=== PATIENT | male | born 2000 | race Caucasian/White ===

== ENCOUNTER 2019-03-26 18:40 | Emergency (ER) | payer OTHER ==
[~2019-03-26] VITALS: Ht 182.9 cm; Wt 95.5 kg
[2019-03-26] MEDS ORDERED: ONDANSETRON 4MG/2ML VIAL (J2405) IV ONE (19:45)
[2019-03-26] MEDS ORDERED: GI COCKTAIL 50ML BTL(HYOSCYAMINE/MAALOX/LIDOCAINE VISCOUS)(1:3:1) PO ONE (19:45)
[2019-03-26] MEDS ORDERED: PANTOPRAZOLE 40MG INJ (PROTONIX) (C9113) IV ONE (19:45)
[2019-03-26] MEDS ORDERED: NS 1,000 ML IV ONE (19:45)
[2019-03-26] MEDS ORDERED: SUCRALFATE 1 GM TAB PO ONE (19:45)
[2019-03-26 20:03] LABS: BASO % 0.3 % (0.0-1.0); EOS # 0.1 10^3/uL (0.0-0.50); EOS % 0.8 % (0.0-3.0); HEMATOCRIT 40.1 % (42.0-52.0); HEMOGLOBIN 13.9 g/dl (13.5-17.5); LYMPH # 1.7 10^3/uL (1.5-6.5); MEAN CORPUSCULAR HEMOGLOBIN 30.3 pg (27.0-33.0); MEAN CORPUSCULAR HGB CONC 34.7 g/dl (32.0-36.5); MEAN CORPUSCULAR VOLUME 87.4 fl (80.0-96.0); MONO # 0.6 10^3/uL (0.0-0.8); MONO % 10.2 % (0.0-5.0); NEUTROPHILS # 3.8 10^3/uL (1.8-7.7); NEUTROPHILS % 61.4 % (36.0-66.0); PLATELET COUNT, AUTOMATED 292 10^3/uL (150-450); RED BLOOD COUNT 4.59 10^6/uL (4.30-6.10); WHITE BLOOD COUNT 6.2 10^3/uL (4.0-10.0)
[2019-03-26 20:29] LABS: ALBUMIN 4.3 GM/DL (3.2-5.2); BILIRUBIN,DIRECT 0.2 MG/DL (0.0-0.2); BILIRUBIN,TOTAL 0.8 MG/DL (0.2-1.0)
[2019-03-26] MEDS ORDERED: ZOFR4TAB16 PO (21:27)
[2019-03-26] MEDS ORDERED: OMEP40CA97 PO (21:27)
[2019-03-26] MEDS ORDERED: CARA1TAB6 PO (21:27)
[2019-03-26 21:36] VITALS: BP 114/64
--- NOTE | 2019-03-27 11:56 | REP ---
Clinical: Acute abdominal pain. Technique: Upright view of the chest with supine and upright views of the abdomen and pelvis. Findings: Frontal upright view of the chest demonstrates no acute cardiopulmonary process or free air below the diaphragm to suspect pneumoperitoneum. Supine and upright views of the abdomen and pelvis demonstrate nonspecific bowel gas pattern without obstruction or perforation. No organomegaly. No abnormal calcifications. Skeletal structures normal for age. Impression: Nonspecific bowel gas pattern. Electronically Signed by Ralph James MD 03/27/2019 02:10 A
== END 2019-03-26 21:38 | disposition home or self-care (01) ==
LOC: M ED 18:40
DX: R10.12 Left upper quadrant pain (principal); R11.10 Vomiting, unspecified
CPT/HCPCS: 74021; 80047; 80076; 83690; 85025; 96374; 96375; 99284; C9113; J2405

== ENCOUNTER 2019-07-18 12:58 | Emergency (ER) | payer OTHER ==
[~2019-07-18] VITALS: Ht 182.9 cm; Wt 103.1 kg
[~2019-07-18 12:58] MED LIST: CARA1TAB6 PO; OMEP40CA97 PO; ZOFR4TAB16 PO
--- NOTE | 2019-07-18 15:02 | REP ---
PELVIS AND BILATERAL HIPS: AP view of the pelvis and AP and frogleg views of the bilateral hips performed. There is no evidence of acute fracture, dislocation or intrinsic bone disease. Hip joints appear normal. IMPRESSION: No fracture or dislocation. Electronically Signed by Kevin Herring MD 07/18/2019 05:14 P
--- NOTE | 2019-07-18 15:05 | REP ---
LUMBOSACRAL SPINE: Five views of the lumbosacral spine are performed. There is no compression fracture or malalignment. There is normal lumbar lordosis. The disc spaces are well preserved. Posterior elements are intact. IMPRESSION: No fracture or dislocation. Electronically Signed by Kevin Herring MD 07/18/2019 05:14 P
[2019-07-18 15:17] LABS: APPEARANCE, URINE CLEAR (CLEAR); BACTERIA, URINE AUTO NEGATIVE (NEGATIVE); BASO % 0.5 % (0.0-1.0); BILIRUBIN, URINE AUTO NEGATIVE (NEGATIVE); BLOOD, URINE BLOOD NEGATIVE (NEGATIVE); COLOR, URINE YELLOW (YELLOW); EOS % 0.3 % (0.0-3.0); GLUCOSE, URINE (UA) AUTO NEGATIVE (NEGATIVE); HEMATOCRIT 42.5 % (42.0-52.0); HEMOGLOBIN 14.5 g/dl (13.5-17.5); KETONE, URINE AUTO NEGATIVE (NEGATIVE); LEUKOCYTE ESTERASE, URINE AUTO NEGATIVE (NEGATIVE); LYMPH # 1.6 10^3/uL (1.5-5.0); LYMPH % 25.5 % (24.0-44.0); MEAN CORPUSCULAR HEMOGLOBIN 29.5 pg (27.0-33.0); MEAN CORPUSCULAR HGB CONC 34.1 g/dl (32.0-36.5); MEAN CORPUSCULAR VOLUME 86.6 fl (80.0-96.0); MONO # 0.5 10^3/uL (0.0-0.8); MONO % 7.6 % (0.0-5.0); MUCUS, URINE SMALL (NEGATIVE); NEUTROPHILS # 4.2 10^3/uL (1.5-8.5); NEUTROPHILS % 65.8 % (36.0-66.0); NITRITE, URINE AUTO NEGATIVE (NEGATIVE); PLATELET COUNT, AUTOMATED 357 10^3/uL (150-450); PROTEIN, URINE AUTO NEGATIVE (NEGATIVE); RBC, URINE AUTO 1 /HPF (0-3); RED BLOOD COUNT 4.91 10^6/uL (4.30-6.10); SPECIFIC GRAVITY URINE AUTO 1.014 (1.002-1.035); SQUAMOUS EPITHELIAL CELL UR AU 0 /HPF (0-6); UROBILINOGEN, URINE AUTO 0.2 mg/dL (0.0-2.0); WBC, URINE AUTO 1 /HPF (0-3); WHITE BLOOD COUNT 6.4 10^3/uL (4.0-10.0)
[2019-07-18 15:40] LABS: ALBUMIN 4.3 GM/DL (3.2-5.2); BILIRUBIN,DIRECT 0.1 MG/DL (0.0-0.2); BILIRUBIN,TOTAL 0.6 MG/DL (0.2-1.0); TOTAL PROTEIN 7.9 GM/DL (6.4-8.2)
[2019-07-18 15:58] VITALS: BP 140/76
== END 2019-07-18 15:59 | disposition home or self-care (01) ==
LOC: M ED 12:58
DX: S70.01XA Contusion of right hip, initial encounter (principal); M54.5 Low back pain; V43.52XA Car driver injured in collision with other type car in traffic accident, initial encounter; Y92.9 Unspecified place or not applicable; Y93.9 Activity, unspecified; Y99.9 Unspecified external cause status; F17.290 Nicotine dependence, other tobacco product, uncomplicated

== ENCOUNTER 2019-10-20 16:39 | Emergency (ER) | payer OTHER ==
[~2019-10-20] VITALS: Ht 180.3 cm; Wt 102.2 kg
[2019-10-20] MEDS ORDERED: GI COCKTAIL 50ML BTL(HYOSCYAMINE/MAALOX/LIDOCAINE VISCOUS)(1:3:1) PO ONE (17:15)
[2019-10-20] MEDS ORDERED: PANTOPRAZOLE 40MG TAB (PROTONIX) PO ONE (17:15)
[2019-10-20 17:33] LABS: BASO % 0.2 % (0.0-1.0); EOS # 0.1 10^3/uL (0.0-0.5); EOS % 1.7 % (0.0-3.0); HEMATOCRIT 44.8 % (42.0-52.0); HEMOGLOBIN 15.1 g/dl (13.5-17.5); LYMPH # 1.2 10^3/uL (1.5-5.0); LYMPH % 25.9 % (24.0-44.0); MEAN CORPUSCULAR HGB CONC 33.7 g/dl (32.0-36.5); MEAN CORPUSCULAR VOLUME 86.2 fl (80.0-96.0); MONO # 0.5 10^3/uL (0.0-0.8); MONO % 9.8 % (0.0-5.0); NEUTROPHILS % 62.2 % (36.0-66.0); PLATELET COUNT, AUTOMATED 337 10^3/uL (150-450); WHITE BLOOD COUNT 4.8 10^3/uL (4.0-10.0)
[2019-10-20 17:53] LABS: ALBUMIN 4.2 GM/DL (3.2-5.2); BILIRUBIN,DIRECT 0.2 MG/DL (0.0-0.2); BILIRUBIN,TOTAL 0.5 MG/DL (0.2-1.0); TOTAL PROTEIN 7.7 GM/DL (6.4-8.2)
--- NOTE | 2019-10-20 17:54 | ECGEPIP ---
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
--- NOTE | 2019-10-20 17:56 | REP ---
Clinical: Acute chest pain . Comparison: None . Technique: PA and lateral. Findings: The mediastinum and cardiac silhouette are normal. The lung kapadia are clear and without acute consolidation, effusion, or pneumothorax. The skeletal structures are intact and normal. Impression: 1. No acute cardiopulmonary process. Electronically Signed by aRlph James MD 10/20/2019 05:47 P
[2019-10-20] MEDS ORDERED: OMEP-218 PO (18:02)
[2019-10-20] MEDS ORDERED: CARA1TAB6 PO (18:02)
[2019-10-20 18:14] VITALS: BP 129/72
== END 2019-10-20 18:16 | disposition home or self-care (01) ==
LOC: M ED 16:39
DX: K21.9 Gastro-esophageal reflux disease without esophagitis (principal); R07.9 Chest pain, unspecified; R00.1 Bradycardia, unspecified; F17.200 Nicotine dependence, unspecified, uncomplicated

== ENCOUNTER → 2019-12-09 | Outpatient (CLI) | payer OTHER ==
[~2019-12-09] MED LIST changes: +OMEP-218 PO; +OMEP1CAP73 PO
== END ==
LOC: M LABSMTC 10:15
PROVIDERS: ATTEND Anesthesiology
DX: Z01.818 Encounter for other preprocedural examination (principal); Z11.59 Encounter for screening for other viral diseases
CPT/HCPCS: C9803; U0002

== ENCOUNTER 2019-12-11 11:39 | Day surgery (SDC) | payer OTHER ==
[~2019-12-11] VITALS: Ht 185.4 cm; Wt 102.1 kg
[2019-12-11] MEDS: NS 1,000 ML IV ONE (12:00)
[2019-12-11] MEDS ORDERED: propofoL 200 MG/20 ML VIAL As Ordered ONE (12:37)
[2019-12-11] MEDS ORDERED: LIDOCAINE 2% 100MG/5ML SDV (FOR ANES.) As Ordered ONE (12:37)
--- NOTE | 2019-12-11 12:57 | ROOR ---
Patient Name: Sahil Doshi Procedure Date: 12/11/2019 12:40 PM Date of : 2000 Age: 19 Room: [facility] Gender: Male Note Status: Finalized Procedure: Upper Endoscopy + Biopsies Indications: Epigastric abdominal pain, Heartburn Providers: Laureano Underwood MD Referring MD: GIACOMO KUMARI MD Requesting Provider: Medicines: Monitored Anesthesia Care Complications: No immediate complications. Procedure: Pre-Anesthesia Assessment: - The heart rate, respiratory rate, oxygen saturations, blood pressure, adequacy of pulmonary ventilation, and response to care were monitored throughout the procedure. The Endoscope was introduced through the mouth, and advanced to the second part of duodenum. The upper GI endoscopy was accomplished without difficulty. The patient tolerated the procedure well. Findings: The Z-line was variable and was found 40 cm from the incisors. Multiple biopsies were obtained with cold forceps for evaluation to rule out Mcmanus's Esophagus randomly at the gastroesophageal junction. A small hiatal hernia was present. No other significant abnormalities were identified in a careful examination of the stomach. Biopsies were taken with a cold forceps in the gastric antrum for Helicobacter pylori testing. The exam of the duodenum was otherwise normal. Impression: - Z-line variable, 40 cm from the incisors. - Small hiatal hernia. - Multiple biopsies were obtained at the gastroesophageal junction. - Biopsies were taken with a cold forceps for Helicobacter pylori testing. - The examination was otherwise normal. Recommendation: - Patient has a contact number available for emergencies. The signs and symptoms of potential delayed complications were discussed with the patient. Return to normal activities tomorrow. Written discharge instructions were provided to the patient. - High fiber diet. - Discharge patient to home. - Follow an antireflux regimen. - Continue present medications. - Await pathology results. - Telephone GI clinic for pathology results in 1 week. - The findings and recommendations were discussed with the patient's family. Laureano Underwood MD Laureano Underowod MD 12/11/2019 12:57:13 PM Electronically signed by Laureano Underwood MD Number of Addenda: 0 Note Initiated On: 12/11/2019 12:40 PM Estimated Blood Loss: Estimated blood loss: none.
[2019-12-11 13:35] VITALS: BP 111/67
== END 2019-12-11 13:40 | disposition home or self-care (01) ==
LOC: M OPP 11:39
PROVIDERS: ATTEND Internal Medicine Gastroenterology
DX: K22.8 Other specified diseases of esophagus (principal); K44.9 Diaphragmatic hernia without obstruction or gangrene; F17.210 Nicotine dependence, cigarettes, uncomplicated; K21.9 Gastro-esophageal reflux disease without esophagitis; R10.13 Epigastric pain

== ENCOUNTER → 2020-06-08 | Outpatient (CLI) | payer OTHER ==
[~2020-06-08] MED LIST changes: +E-Z-GAS II EFFERVESCENT PACKET (SODIUM BICARB./CITRIC ACID/SIMETHICONE) As Ordered ONE; +E-Z-HD 98% w/w 340GM SUSP BTL As Ordered ONE; +E-Z-PAQUE 96% w/w SUSP 176GM BTL As Ordered ONE
--- NOTE | 2020-06-08 17:02 | REP ---
INDICATION: K21.9 GERD. TECHNIQUE: This procedure was performed by Dorita Espinoza [facility], under the direct supervision of Dr. Ovalle. Images were reviewed with Dr. Ovalle prior to dictation. Liquid barium and gas producing crystals were given in the erect position, as well as liquid barium in the prone oblique position in order to perform a double contrast upper GI examination. FINDINGS: The cna gna film shows no organomegaly or pathological masses. The intestinal gas pattern is unremarkable. The oral and pharyngeal stages of deglutition were unremarkable. Esophageal transport is prompt and efficient and there is no evidence of esophagitis, stricture, or mucosal ring. There is no evidence of a hiatal hernia. There is no gastroesophageal reflux noted . The stomach jaime are normally outlined. The rugal folds are smooth and regular. There is no gastritis, neoplasm, or ulcerative disease. The duodenal jaime are normally outlined. The mucosal folds are smooth and regular. There is no duodenitis, peptic ulcer disease or neoplasm. The visualized portion of the proximal small bowel appears normal in course and caliber. IMPRESSION: Unremarkable upper GI with esophagram. 0.4 minutes of fluoroscopy time was utilized for this procedure. Some fluoroscopic images are performed with last image hold technology. These images require no additional radiation. <Electronically signed by Dorita Espinoza > 06/08/20 [id number] <Electronically signed by Herman Ovalle > 06/08/20 [id number]
== END ==
LOC: M RAD 08:29
PROVIDERS: ATTEND Surgery
DX: K21.9 Gastro-esophageal reflux disease without esophagitis (principal)

== ENCOUNTER 2020-10-09 22:39 | Inpatient (IN) | payer OTHER ==
[~2020-10-09] VITALS: Ht 182.9 cm; Wt 100.9 kg
[~2020-10-09 22:39] MED LIST changes: -E-Z-GAS II EFFERVESCENT PACKET (SODIUM BICARB./CITRIC ACID/SIMETHICONE) As Ordered ONE; -E-Z-HD 98% w/w 340GM SUSP BTL As Ordered ONE; -E-Z-PAQUE 96% w/w SUSP 176GM BTL As Ordered ONE
[2020-10-09] MEDS ORDERED: PROZ20CA11 PO (22:56)
[2020-10-09 23:07] LABS: HEMATOCRIT 44.5 % (42.0-52.0); HEMOGLOBIN 14.9 g/dl (13.5-17.5); MEAN CORPUSCULAR HEMOGLOBIN 28.7 pg (27.0-33.0); MEAN CORPUSCULAR HGB CONC 33.5 g/dl (32.0-36.5); MEAN CORPUSCULAR VOLUME 85.7 fl (80.0-96.0); PLATELET COUNT, AUTOMATED 385 10^3/uL (150-450); RED BLOOD COUNT 5.19 10^6/uL (4.30-6.10); WHITE BLOOD COUNT 5.8 10^3/uL (4.0-10.0)
[2020-10-09 23:34] LABS: AMPHETAMINES LEVEL URINE NEGATIVE (NEGATIVE); BARBITURATES URINE NEGATIVE (NEGATIVE); BENZODIAZEPINES URINE NEGATIVE (NEGATIVE); CANNABINOIDS URINE NEGATIVE (NEGATIVE); COCAINE METABOLITE URINE NEGATIVE (NEGATIVE); METHADONE URINE NEGATIVE (NEGATIVE); OPIATES URINE NEGATIVE (NEGATIVE); PHENCYCLIDINE URINE NEGATIVE (NEGATIVE)
[2020-10-09 23:50] LABS: ACETAMINOPHEN LEVEL < 2.0 UG/ML (10.0-30.0); ALBUMIN 4.3 GM/DL (3.2-5.2); ALT/SGPT 28 U/L (12-78); BILIRUBIN,DIRECT 0.2 MG/DL (0.0-0.2); BILIRUBIN,TOTAL 0.6 MG/DL (0.2-1.0); BLOOD UREA NITROGEN 11 MG/DL (7-18); CALCIUM LEVEL 8.7 MG/DL (8.5-10.1); CARBON DIOXIDE LEVEL 25 MEQ/L (21-32); CHLORIDE LEVEL 109 MEQ/L (98-107); CREATININE FOR GFR 0.99 MG/DL (0.70-1.30); ETHYL ALCOHOL (ETHANOL) < 0.003 % (0.000-0.010); GLOMERULAR FILTRATION RATE > 60.0 (>60); GLUCOSE, FASTING 108 MG/DL (70-100); POTASSIUM SERUM 3.8 MEQ/L (3.5-5.1); SALICYLATE LEVEL < 1.7 MG/DL (5.0-30.0); SODIUM LEVEL 141 MEQ/L (136-145); TOTAL PROTEIN 7.8 GM/DL (6.4-8.2)
[2020-10-10] MEDS ORDERED: HYDR1CAP25 PO (01:30)
[2020-10-10 02:15] LABS: RSV AMPLIFICATION NEGATIVE (NEGATIVE)
[2020-10-10] MEDS ORDERED: MAALOX 30 ML SUSP *UDC PO PRN (02:25)
[2020-10-10] MEDS ORDERED: ACETAMINOPHEN TAB 650MG DOSE (2X325MG) PO PRN (02:25)
[2020-10-10] MEDS ORDERED: MOM 30ML SUSPENSION UDC PO PRN (02:25)
[2020-10-10] MEDS ORDERED: traZODone 50 MG TAB PO PRN (02:25)
[2020-10-10 03:24] VITALS: BP 142/78
[2020-10-10 07:25] VITALS: BP 141/84
--- NOTE | 2020-10-10 09:58 | MHHPEPDOC ---
General Date Of Admission: Oct 10, 2020 Legal Status: 9.39 Chief Complaint Panic Attacks and OCD" History of Present Illness HISTORY OF THE PRESENT ILLNESS: Patient is a 20 -year-old , male, Note from ER * Pt is a 20 AD Male with an ETS date of 2022. 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 Pt stated that his anxiety is crippling and he can't shake it. Pt was prescribed Prozac 3 days ago and stated that he thinks he is having a reaction to it that is causing these severely negative thoughts. Pt explained that last night he had a very vivid dream that he killed himself, then when he woke up this morning he felt like he was still in the dream and it scared him. Pt stated that tonight he was watching a movie where the woman was stuck in a dream and stated something along the lines of "If I kill myself I will be able to get out of this dream" Pt stated when she said this it triggered the same thoughts in his head. Pt is adamant that this is because of the Prozac, but explained very concerning thoughts that he has had prior to starting the Prozac. Pt stated that he has thoughts like "What if I went and took all my wives meds right now" or "If I killed myself today, how would my family feel tomorrow" Pt also talked about an event where he was taking his to her dentist appointment he had this intruding thought that he was going to kill himself today, then when he was waiting in the car for her he had the thought that he was going to kill himself now. Pt denies AH/VH. Pt explains his anxiety as crippling and that he goes in waves of severely anxious and majorly depressed. Pt stated the only relief he can get from his anxiety is laying in bed, which then makes him very depressed. Pt seems to be minimizing symptoms. Pt is also very adamant he does not want medication intervention because he is nervous about what it will do to him since the Prozac made him have suicidal thoughts. Patient states he was diagnosed in the [facility] as having OCD. He has an appointment next Monday. [facility] and was prescribed Prozac 20 mg he stated it made him feel useless and horrible. He stated he had a dream that he had killed himself he was then given Vistaril and stopped Prozac. He states he came to the ER after having watched the movie inception which included a scene where the character would have to kill themselves to come out of this so-called dream. He stated he believed life wasn't real. He states he has intrusive harm thoughts. He states his OCD comes out when he is under stress. 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 He states he has thoughts he ruminates and he thought he had depression in the last 2 weeks. Patient states he frequently reads [employer]. and that he thinks, and as does his that he is a hypochondriac.. He states he worried he would "never feel good again. He states he worries about the thoughts he cannot control. For instance, what if I stabbed someone." He has been going to a psychiatric care or psychological care for 2 years when he is anxious. His anxiety attacks as a weird pressure, shaky and jumpy in his arms and legs. He states he has general anxiety all the time. He has tried meditation and calling his when he has these attacks. He states he's had these attacks for 2 years. His legal history is negative. His neurological history is negative. His surgical history is positive for undescended testicle. His medical history is positive for GERD. 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 His family history is positive for mother having OCD and uncle with depression, a grandfather who killed himself. He has no children. He denies drug use and alcohol use would like to get out of the army and worked in aviation. He denies auditory or visual hallucinations. He denies suicidal thoughts. He does not want any medication treatment. Psychiatric Review of Systems Depression (2 or more weeks): denies Psychosis: denies PTSD: nightmares and flashbacks, mood fluctuations, due to symptoms Anxiety: gen/non-specific anxiety, panic attacks Past Psychiatric History Previous Psychiatric Diagnosis: Anxiety and recently diagnosed with OCD. Previous Psychiatric Admissions: None. Suicide Attempts: none Psychiatric Follow-up: [facility]. Psychiatric medications: 2 days. Prozac. Past Medical History Medical Problems none Hospitalizations: No Surgeries: Yes Family Medical/Psychiatric HX Psychiatric Disorders: Yes Addiction: No Suicide Attemps/Completions: Yes Addiction History denies Social History Childhood: Mother had OCD. Abuse/Trauma: No known abuse. Current Living Situation: Lives with . Education: Specialist training. Employment: [employer]. Social Support: . Legal:. Negative. Marital: . Mental Status Examination General Appearance: well groomed Build: average Demeanor: average Eye Contact: average Activity: average Behavior: cooperative Speech: clear Mood: anxious Affect: full Thought Process: logical/linear Thought Content (Delusions): nihilistic Thought Content (Other): preoccupied, obsessional Thought Content (Aggressive): aggressive (assess) Perception (Hallucinations): none reported Perception (Other): none reported Cognition (Impairment of): none reported Cognition(Intelligence Est.): above average Oriented: Awake, Alert, Oriented times three Insight: poor Judgment: Fair Psychosis: Denies Diagnoses General Anxiety, Panic Attacks A-FIB/CHADSVASC A-FIB History Current/History of A-Fib/PAF?: No Current PO Anticoag Therapy: No Age/Risk Factor Scoring CHADSVASC: CHADSVASC Response (Comments) Value Age Risk Factor Age < 65 years old 0 Gender Risk Factor Male 0 Hx of CHF No 0 Hx of HTN No 0 Hx of Stroke/TIA/or VTE No 0 Hx of Diabetes No 0 Hx of Vascular Disease No 0 Total 0 Treatment Treatment ordered: NONE Initial Treatment Plan 1. Patient was admitted on a [9.39] status. 2. Complete history was obtained. 3. With patients permission, family will be contacted and database will be expanded. 4. Patients medication regimen will be reviewed and changed accordingly. 5. Patient will be provided with protected environment. 6. Patient will be treated with individual, group, and milieu therapies. 7. Patient will receive supportive psych-education. 8. Discharge planning will commence immediately. 9. Outpatient follow-up treatment will be strongly recommended. 10. The initial treatment plan will focus initially on: * Depression. * Risk for suicide. ESTIMATED LENGTH OF STAY: - DAYS. TIME SPENT COUNSELING AND COORDINATING INITIAL CARE: minutes. N/A-No Antipsychotics Vital Signs Vital Signs Date Time Temp Pulse Resp B/P (MAP) Pulse Ox O2 Delivery O2 Flow Rate FiO2 10/10/20 07:25 98.2 56 20 141/84 (103) 100 Room Air Laboratory Data 24H Labs Laboratory Tests 2 10/09/20 22:59: Nucleated Red Blood Cells % (auto) 0.0 10/09/20 23:00: Anion Gap 7L, Glomerular Filtration Rate > 60.0, Calcium Level 8.7, Total Bilirubin 0.6, Direct Bilirubin 0.2, Aspartate Amino Transf (AST/SGOT) 10, Alanine Aminotransferase (ALT/SGPT) 28, Alkaline Phosphatase 75, Total Protein 7.8, Albumin 4.3, Albumin/Globulin Ratio 1.2, Thyroid Stimulating Hormone (TSH) 4.760H, Salicylates Level < 1.7L, Urine Opiates Screen NEGATIVE, Urine Methadone Screen NEGATIVE, Acetaminophen Level < 2.0L, Urine Barbiturates Screen NEGATIVE, Urine Phencyclidine Screen NEGATIVE, Urine Amphetamines Screen NEGAT SANDRA, Urine Benzodiazepines Screen NEGATIVE, Urine Cocaine Metabolite Screen NEGATIVE, Urine Cannabinoids Screen NEGATIVE, Ethyl Alcohol Level < 0.003 10/10/20 01:10: Coronavirus (COVID-19)(PCR) NEGATIVE, Influenza Type A (RT-PCR) NEGATIVE, Influenza Type B (RT-PCR) NEGATIVE, Respiratory Syncytial Virus (PCR) NEGATIVE CBC/BMP Laboratory Tests 10/09/20 22:59 10/09/20 23:00 Medications Scheduled Hydroxyzine Pamoate (Hydroxyzine Pamoate) 25 Mg Capsule, 25 MG PO QHS, (Reported) Allergies Coded Allergies: No Known Allergies (Unverified , 12/04/19) CHUN SNOW MD Oct 10, 2020 09:58
--- NOTE | 2020-10-10 12:06 | HPEPDOC ---
General Date of Admission Oct 09, 2020 at 22:40 Date of Service: Oct 10, 2020 Chief Complaint The patient is a 20-year-old male admitted with a reason for visit of Depression. Source: Patient History of Present Illness 20 year old male was admitted to [facility] for suicidal ideas after starting prozac few days ago for OCD and anxiety. He is being medically examined here. Today he denies any medical complaints. He reports he is going to be evaluated next moth for possible surgery for Hiatal hernia. Home Medications Scheduled Hydroxyzine Pamoate (Hydroxyzine Pamoate) 25 Mg Capsule, 25 MG PO QHS, (Reported) Allergies Coded Allergies: No Known Allergies (Unverified , 12/04/19) Past Medical History Medical History GERD Hiatal hernia Harm OCD Anxiety Surgical History surgery for undescended testes Family History Mother OCD Maternal uncle : Depression Social History * Smoker: Denies, other (nicotine chews) Alcohol: Denies Drugs: marijuana A-FIB/CHADSVASC A-FIB History Current/History of A-Fib/PAF?: No Review of Systems Constitutional: Denies: Chills, Fever, Night Sweats Eyes: Denies: Pain, Vision change ENT: Denies: Head Aches, Ear Pain, Dysphagia Skin: Denies: Rash, Lesions, Breakdown Pulmonary: Denies: Dyspnea, Cough Cardiovascular: Denies: Chest Pain, Palpitations, Orthopnea, Paroxysmal Noc. Dyspnea, Lt Headedness Gastrointestinal: Denies: Nausea, Vomiting, Abdominal Pain, Diarrhea Genitourinary: Denies: Dysuria, Frequency, Incontinence, Retention Hematologic: Denies: Bruising, Bleeding Excessively Musculoskeletal: Denies: Neck Pain, Back Pain, Joint Pain, Muscle Pain, Spasms Neurological: Denies: Weakness, Numbness, Change in speech, Confusion Psych: Reports: Anxiety, Depression; Denies: Memory Issues Physical Examination General Exam: Positive: Alert, Cooperative, No Acute Distress Eye Exam: Positive: PERRLA, Conjunctiva & lids normal, EOMI; Negative: Sclera icteric ENT Exam: Positive: Atraumatic, Mucous membr. moist/pink, Pharynx Normal Neck Exam: Positive: Supple; Negative: JVD, thyromegaly Chest Exam: Positive: Clear to auscultation, Normal air movement Heart Exam: Positive: Rate Normal, Regular Rhythm, Normal S1, Normal S2; Negative: Murmurs, Rubs Abdomen Exam: Positive: Normal bowel sounds, Soft; Negative: Tenderness, Hepatospenomegaly Extremity Exam: Positive: Normal pulses; Negative: Clubbing, Cyanosis, Edema Skin Exam: Positive: Nl turgor and temperature; Negative: Breakdown, Lesion Neuro Exam: Positive: Normal Gait, Normal Speech, Cranial Nerves 3-12 NL, Reflexes 2+ Psych Exam: Positive: Memory Intact, Oriented x 3 Vital Signs Vital Signs Date Time Temp Pulse Resp B/P (MAP) Pulse Ox O2 Delivery O2 Flow Rate FiO2 10/10/20 09:38 Room Air 10/10/20 07:25 98.2 56 20 141/84 (103) 100 Laboratory Data Labs 24H Laboratory Tests 2 10/09/20 22:59: Nucleated Red Blood Cells % (auto) 0.0 10/09/20 23:00: Anion Gap 7L, Glomerular Filtration Rate > 60.0, Calcium Level 8.7, Total Bilirubin 0.6, Direct Bilirubin 0.2, Aspartate Amino Transf (AST/SGOT) 10, A lanine Aminotransferase (ALT/SGPT) 28, Alkaline Phosphatase 75, Total Protein 7.8, Albumin 4.3, Albumin/Globulin Ratio 1.2, Thyroid Stimulating Hormone (TSH) 4.760H, Salicylates Level < 1.7L, Urine Opiates Screen NEGATIVE, Urine Methadone Screen NEGATIVE, Acetaminophen Level < 2.0L, Urine Barbiturates Screen NEGATIVE, Urine Phencyclidine Screen NEGATIVE, Urine Amphetamines Screen NEGATIVE, Urine B enzodiazepines Screen NEGATIVE, Urine Cocaine Metabolite Screen NEGATIVE, Urine Cannabinoids Screen NEGATIVE, Ethyl Alcohol Level < 0.003 10/10/20 01:10: Coronavirus (COVID-19)(PCR) NEGATIVE, Influenza Type A (RT-PCR) NEGATIVE, Influenza Type B (RT-PCR) NEGATIVE, Respiratory Syncytial Virus (PCR) NEGATIVE CBC/BMP Laboratory Tests 10/09/20 22:59 10/09/20 23:00 Assessment/Plan 20 year old male was admitted to [facility] for suicidal ideas after starting prozac few days ago for OCD and anxiety. He is being medically examined here. No medical issues at this time. Depression/ suicidal ideas As per psychiatry. Plan / VTE VTE Prophylaxis Ordered?: No (freely ambulatory. ) EMILY ROSADO MD Oct 10, 2020 12:06
[2020-10-10 19:01] VITALS: BP 128/57
[2020-10-11 08:15] VITALS: BP 113/58
[2020-10-11] MEDS ORDERED: hydrOXYzine 25 MG TAB PO PRN (10:55)
--- NOTE | 2020-10-11 11:05 | MHIPNPDOC ---
[facility] Progress Note Progress Note DATE OF SERVICE: 10/11/20 HISTORY: 20-year-old male with severe anxiety. Had a bad side effect experience with Prozac, [place] VITAL SIGNS: See below. NEW TEST RESULTS: None. CURRENT MEDICATIONS: See below. MENTAL STATUS EXAMINATION: Patient is a 20-year old male, who is suffering from severe anxiety with possible OCD symptoms. Speech: Is unremarkable. Language skills no gross disturbance. Thought processes including: As in history stress and anxiety leading to odd thoughts and destructive violent repetitive thoughts. Thought content: As above as mentioned in history. Abstract reasoning, and computation: Able to abstract. Description of associations: Loose association. Description of abnormal or psychotic thoughts: Abnormal thoughts as detailed in history. Judgment: Poor. Insight: Fair. Orientation: 3. Recent and remote memory: Intact. Attention span and concentration: No gross disturbance. Language:. No gross disturbance. Fund of knowledge: Reasonable. Mood: Euthymic. Affect:, Congruent. DIAGNOSES: 1. Depression with anxiety. 2., Rule out obsessive-compulsive disorder. 3. None. ASSESSMENT: As above MANAGEMENT PLAN:. Patient does not want treatment here but plans to see his outpatient psychiatrist. TIME SPENT:, 30 minutes. Vital Signs Vital Signs Date Time Temp Pulse Resp B/P (MAP) Pulse Ox O2 Delivery O2 Flow Rate FiO2 10/11/20 08:33 Room Air 10/11/20 08:15 98.1 64 18 113/58 (76) 100 Current Medications Current Medications Medications (Trade) Dose Ordered Sig/Nayeli Route PRN Reason Start Time Stop Time Status Last Admin Dose Admin Acetaminophen (Tylenol Tab) 650 mg Q6HP PRN PO HEADACHE or DISCOMFORT 10/10/20 02:25 Al Hydrox/Mg Hydrox/Simethicone (Mylanta) 30 ml Q4HP PRN PO HEARTBURN/INDIGESTION 10/10/20 02:25 Home Med (Med Rec Complete!) ASDIRECTED XX 10/10/20 01:35 10/10/20 01:33 DC Magnesium Hydroxide (Milk Of Magnesia) 30 ml DAILYPRN PRN PO CONSTIPATION 10/10/20 02:25 Trazodone HCl (Desyrel) 50 mg QHSP PRN PO INSOMNIA 10/10/20 02:25 Allergies Coded Allergies: No Known Allergies (Unverified , 12/04/19) CHUN SNOW MD Oct 11, 2020 11:05
[2020-10-11 17:54] VITALS: BP 122/65
[2020-10-12 06:54] VITALS: BP 116/59
--- NOTE | 2020-10-12 10:34 | MHDSPDOC ---
[facility] Discharge Summary Discharge Summary DATE OF ADMISSION: Oct 09, 2020 at 22:40 DATE OF DISCHARGE: October 12, 2020 at 1011 DISCHARGE DIAGNOSES: General Anxiety Disorder Panic Disorder REASON FOR ADMISSION: Patient states he was diagnosed in the [facility] as having OCD. He has an appointment next Monday. [facility] and was prescribed Prozac 20 mg he stated it made him feel useless and horrible. He stated he had a dream that he had killed himself he was then given Vistaril and stopped Prozac. He states he came to the ER after having watched the movie inception which included a scene where the character would have to kill themselves to come out of this so-called dream. He stated he believed life wasn't real. He states he has intrusive harm thoughts. He states his OCD comes out when he is under stress. 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 He states he has thoughts he ruminates and he thought he had depression in the last 2 weeks. Patient states he frequently reads [employer] and that he thinks, and as does his that he is a hy pochondriac.. He states he worried he would "never feel good again. He states he worries about the thoughts he cannot control. For instance, what if I stabbed someone." He has been going to a psychiatric care or psychological care for 2 years when he is anxious. His anxiety attacks as a weird pressure, shaky and jumpy in his arms and legs. He states he has general anxiety all the time. He has tried meditation and calling his when he has these attacks. He states he's had these attacks for 2 years. His legal history is negative. His neurological history is negative. His surgical history is positive for undescended testicle. His medical history is positive for GERD. 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 His family history is positive for mother having OCD and uncle with depression, a grandfather who killed himself. He has no children. He denies drug use and alcohol use would like to get out of the army and worked in aviation. He denies auditory or visual hallucinations. He denies suicidal thoughts. He does not want any medication treatment. Per ED Report: Pt is a 20 AD Male with an ETS date of 2022. 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 Pt stated that his anxiety is crippling and he can't shake it. Pt was prescribed Prozac 3 days ago and stated that he thinks he is having a reaction to it that is causing these severely negative thoughts. Pt explained that last night he had a very vivid dream that he killed himself, then when he woke up this morning he felt like he was still in the dream and it scared him. Pt stated that tonight he was watching a movie where the woman was stuck in a dream and stated something along the lines of "If I kill myself I will be able to get out of this dream" Pt stated when she said this it triggered the same thoughts in his head. Pt is adamant that this is because of the Prozac, but explained very concerning thoughts that he has had prior to starting the Prozac. Pt stated that he has thoughts like "What if I went and took all my wives meds right now" or "If I killed myself today, how would my family feel tomorrow" Pt also talked about an event where he was taking his to her dentist appointment he had this intruding thought that he was going to kill himself today, then when he was waiting in the car for her he had the thought that he was going to kill himself now. Pt denies AH/VH. Pt explains his anxiety as crippling and that he goes in waves of severely anxious and majorly depressed. Pt stated the only relief he can get from his anxiety is laying in bed, which then makes him very depressed. Pt seems to be minimizing symptoms. Pt is also very adamant he does not want medication intervention because he is nervous about what it will do to him since the Prozac made him have suicidal thoughts. CONSULTANTS INVOLVED: See Medical H + P by Hospitalist TREATMENT AND PROGRESS ON THE UNIT: Patient was admitted to the [facility] on a legal status he was afforded the following treatment modalities: 1) Individual Therapy 2) Group Therapy 3) Medication Management 4) Milieu Therapy 5) Safe Environment HOSPITAL COURSE: Patient was admitted to [facility] on a legal status. He was stopped on the Prozac, declined medications for his obsessive-compulsive s ymptoms. He states that he has an appointment today and wants to have his provider at [facility] prescribe his medications. Patient was reporting that much of his side effects that he had experiences were all listed as adverse effects of Prozac and because he has his OCD tendencies he feels that he starts to worry about the written side effects and it becomes fruition in his mind. DISCHARGE ASSESSMENT: In today's interview, patient is alert and oriented, pts dress is appropriate. Hygiene and grooming is well-kempt. Smiles on approach and is pleasant and engaged in the interview. Denies depression and anxiety. Denies suicidal and homicidal ideation, planning or intent. Denies and is not observed with neptali, psychotic symptoms of delusions, bizarre thinking, obsessions, paranoia, ruminations illogical thoughts, flight of ideas or having poor insight and judgement. Patient has normal mentation, declines further hospitalization on a voluntary status and meets criteria for discharge today. Patient encouraged to return to hospital if his symptoms worsen or change and encouraged to call unit if he/she/they needs to speak to provider for questions regarding medications or care. 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 He is dressed appropriately, makes good eye contact, is alert and oriented, denies suicidal ideation, depression and auditory hallucinations. Speech: Is fluid, conversant, normal rate, tone and volume Language skills are intact Thought processes including: linear and goal oriented Thought content: denies depression and anxiety. Denies suicidal/homicidal ideation, planning or intent. Abstract reasoning, and computation: fair Description of associations: denies, none observed Description of abnormal or psychotic thoughts: denies, none observed. Judgment: fair Insight: fair Orientation: alert and oriented to person, place, time and situation Recent and remote memory: intact Attention span and concentration: good Language: expansive Fund of knowledge: average Mood: Euthymic Mood Affect: reactive MEDICATIONS ON DISCHARGE: Patient declined medication recommendations, he is continued on his Hydroxyzine Pamoate 25 mg HS PLAN/FOLLOWUP ARRANGEMENTS: [facility] The amount of time spent in the coordination of care for this patient was approximately 25 minutes. ETOH/Disorder Med Rx ETOH/DRUG DISORDER RX: N/A Vital Signs/I&Os Vital Signs Date Time Temp Pulse Resp B/P (MAP) Pulse Ox O2 Delivery O2 Flow Rate FiO2 10/12/20 06:54 97.8 69 16 116/59 (78) 99 Room Air Medications Scheduled Hydroxyzine Pamoate (Hydroxyzine Pamoate) 25 Mg Capsule, 25 MG PO QHS, (Reported) Allergies Coded Allergies: No Known Allergies (Unverified , 12/04/19) SOPHIE PEDROZA NP Oct 12, 2020 10:21
== END 2020-10-12 13:00 | disposition home or self-care (01) | DRG 880 ==
LOC: M ED 22:39 → M ED INP 22:40 → M PSY 10-10 03:21
PROVIDERS: ADMIT Psychiatry & Neurology Psychiatry; ATTEND Psychiatry & Neurology Psychiatry
DX: F41.1 Generalized anxiety disorder (principal); F41.0 Panic disorder [episodic paroxysmal anxiety]; K21.9 Gastro-esophageal reflux disease without esophagitis; F42.9 Obsessive-compulsive disorder, unspecified; K44.9 Diaphragmatic hernia without obstruction or gangrene